=== PATIENT | male | born 1960 | race American Indian/Alaskan Native ===

== ENCOUNTER 2017-03-18 11:17 | Emergency (ER) | payer SELFPAY ==
[2017-03-18 11:44] VITALS: BP 149/94
[2017-03-18 12:01] LABS: Hematocrit 43.6 % (35.5-45.6); Hemoglobin 14.8 gm/dl (11.8-15.2); Mean Corpuscular HGB Conc 34 % (32-34); Mean Corpuscular Hemoglobin 30 pg (28-32); Mean Corpuscular Volume 89 fl (84-94); Platelet Count 267 K/mm3 (140-440); Red Blood Count 4.89 M/mm3 (3.65-5.03); White Blood Count 12.3 K/mm3 (4.5-11.0)
[2017-03-18 12:41] LABS: Alanine Aminotransferase 39 units/L (7-56); Alkaline Phosphatase 84 units/L (35-129); Anion Gap 18 mmol/L; BUN/Creatinine Ratio 18.88; Blood Urea Nitrogen 17 mg/dL (9-20); Calcium 9.9 mg/dL (8.4-10.2); Carbon Dioxide 25 mmol/L (22-30); Chloride 98.4 mmol/L (98-107); Glucose 94 mg/dL (75-100); Lipase 41 units/L (13-60); Potassium 3.8 mmol/L (3.6-5.0); Sodium 138 mmol/L (137-145); Total Protein 8.1 g/dL (6.3-8.2)
[2017-03-18 13:16] LABS: Anisocytosis 1+; Basophils % (Manual) 0 % (0.0-1.8); Blastocytes % (Manual) 0 %; Diff Status Complete; Platelet Estimate Consistent w Auto
[2017-03-18 14:36] LABS: Bilirubin,Urine NEG (Negative); Blood,Urine NEG (Negative); Ketones,Urine NEG (Negative); Leukocyte Esterase,Urine NEG (Negative); Nitrite,Urine NEG (Negative); Protein,Urine <15 mg/dL mg/dL (Negative); Urobilinogen,Urine < 2.0 mg/dL (<2.0); WBC,Urine < 1.0 /HPF (0.0-6.0)
[2017-03-18] MEDS ORDERED: DUONEB *Not for PRN Use IH ONE (15:45)
[2017-03-18] MEDS ORDERED: ZITHROMAX PO ONE (15:46)
[2017-03-18] MEDS ORDERED: PEPCID PO ONE (15:49)
--- NOTE | 2017-03-18 15:50 | Emergency Department Report ---
<VANESSAJASWANT MENDIETA Angelo - Last Filed: 03/18/17 16:41> ED Chest Pain HPI - General Chief Complaint: Chest Pain Stated Complaint: "feel funny" indicating epigastric Time Seen by Provider: 03/18/17 15:35 Source: patient Mode of arrival: Ambulatory Limitations: No Limitations - History of Present Illness -: Gradual Pain Location: other (dont feel good) Other Symptoms: cough, acid taste in mouth. denies: fever, syncope, rash, leg swelling, palpitations, burping Treatments Prior to Arrival: other (seen at another hosp on 03-14 for same; did not take meds bc he thinks they will make him worse. known anxiety) Aspirin use within the Past 7 Days: (0) No - Related Data On Oral Contraceptives: No Previous Rx's Medication Instructions Recorded Last Taken Type Docusate Sodium [Colace] 100 mg PO BID #60 capsule 09/24/15 Unknown Rx Famotidine [Pepcid] 20 mg PO BID #40 tablet 09/24/15 Unknown Rx Fluticasone [Flonase] 2 spray NS QDAY #1 bottle 09/24/15 Unknown Rx Hydralazine HCl [Apresoline TAB] 100 mg PO TID #30 tablet 09/24/15 Unknown Rx Prednisone [predniSONE 10 mg 10 mg PO .TAPER #1 tab.ds.pk 09/24/15 Unknown Rx (6-Day Pack, 21 Tabs)] amLODIPine [Norvasc] 10 mg PO DAILY #30 tablet 09/24/15 Unknown Rx traMADol [Ultram] 50 mg PO Q6HR PRN #20 tablet 09/24/15 Unknown Rx HYDROcodone/APAP 5-325 [[place] 1 each PO Q6HR PRN #16 tablet 10/04/15 Unknown Rx 5/325] Azithromycin [Zithromax TAB] 250 mg PO QDAY #4 tablet 03/18/17 Unknown Rx Allergies Allergy/AdvReac Type Severity Reaction Status Date / Time No Known Allergies Allergy Verified 06/30/15 23:10 Heart Score - HEART Score History: Slightly suspicious EKG: Normal Age: 45-65 Risk factors: 1-2 risk factors Troponin: < normal limit HEART Score: 2 ED Review of Systems ROS: Stated complaint: CHEST AND ABDOMEN PAIN Other details as noted in HPI Comment: Unobtainable due to pts medical conditions Constitutional: no symptoms reported, see HPI. denies: chills, fever Eyes: as per HPI. denies: eye pain ENT: as per HPI. denies: ear pain, throat pain Respiratory: no symptoms reported, see HPI, cough. denies: orthopnea, shortness of breath, SOB with exertion, SOB at rest, stridor Cardiovascular: as per HPI. denies: chest pain, palpitations, dyspnea on exertion, orthopnea, edema, syncope, paroxysmal nocturnal dyspnea Endocrine: no symptoms reported, see HPI. denies: excessive sweating, flushing , intolerance to cold, intolerance to heat Gastrointestinal: as per HPI. denies: abdominal pain, nausea, vomiting Genitourinary: as per HPI. denies: urgency, dysuria Musculoskeletal: as per HPI, other (ble pain a/c). denies: back pain Skin: as per HPI. denies: rash, lesions Neurological: as per HPI. denies: headache, weakness Psychiatric: as per HPI, anxiety (funny feeling; anxious; xanax) Hematological/Lymphatic: as per HPI. denies: easy bleeding ED Past Medical Hx - Past Medical History Hx Hypertension: Yes Hx GERD: Yes Hx Psychiatric Treatment: Yes (ANXIETY) Additional medical history: chronic back pain, RBBB, left rib fracture,AAA. home meds amlodipine, lisinopril, hctz, vit, motrin , prednisone, otc tagament - Surgical History Past Surgical History?: No Additional Surgical History: hernia repair - Family History Family history: no significant - Social History Smoking Status: Current Some Day Smoker Substance Use Type: None - Medications Home Medications: Home Medications Medication Instructions Recorded Confirmed Last Taken Type Docusate Sodium [Colace] 100 mg PO BID #60 capsule 09/24/15 Unknown Rx Famotidine [Pepcid] 20 mg PO BID #40 tablet 09/24/15 Unknown Rx Fluticasone [Flonase] 2 spray NS QDAY #1 bottle 09/24/15 Unknown Rx Hydralazine HCl [Apresoline TAB] 100 mg PO TID #30 tablet 09/24/15 Unknown Rx Prednisone [predniSONE 10 mg 10 mg PO .TAPER #1 tab.ds.pk 09/24/15 Unknown Rx (6-Day Pack, 21 Tabs)] amLODIPine [Norvasc] 10 mg PO DAILY #30 tablet 09/24/15 Unknown Rx traMADol [Ultram] 50 mg PO Q6HR PRN #20 tablet 09/24/15 Unknown Rx HYDROcodone/APAP 5-325 [[place] 1 each PO Q6HR PRN #16 tablet 10/04/15 Unknown Rx 5/325] Azithromycin [Zithromax TAB] 250 mg PO QDAY #4 tablet 03/18/17 Unknown Rx ED Physical Exam - General Limitations: No Limitations ED Course Vital Signs 03/18/17 03/18/17 03/18/17 11:40 16:51 16:57 Temperature 98 F Pulse Rate 87 Pulse Rate [ 85 88 Bilateral Upper Lobe] Respiratory 18 Rate Respiratory 18 20 Rate [Bilateral Upper Lobe] Blood Pressure 149/94 O2 Sat by Pulse 100 Oximetry - Reevaluation(s) Reevaluation #1: 03/18/17 1200 to er w vague co not feeling well no pain he went to another er 9-5 w urti [facility] lobe wheezing and rhochi no fever non toxic anxious AAA small per pt- suero 1 y ago; has had cardiac suero no cp no sob anxious about meds he was given labs noted ekg noted chest xray noted rt tx and medicated Dr. Quinteros aware of pt presentation Reevaluation #2: 03/18/17 15:49 vss nad dc home w dc poc RAMEZ score - Ramez Score Age > 65: (0) No Aspirin use within the Past 7 Days: (0) No 3 or more CAD Risk Factors: (0) No 2 or more Angina events in past 24 hrs: (0) No Known CAD with more than 50% Stenosis: (0) No Elevated Cardiac Markers: (0) No ST Deviation Greater than 0.5mm: (0) No RAMEZ Score: 0 ED Medical Decision Making - Lab Data Result diagrams: 03/18/17 11:49 03/18/17 11:49 - EKG Data -: EKG Interpreted by Me EKG shows normal: sinus rhythm - EKG Data When compared to previous EKG there are: other (rbbb old) Interpretation: no acute changes, other (known rbbb) - Radiology Data Radiology results: report reviewed, image reviewed - Medical Decision Making 12 lead rbbb- chronic trop neg recent urti wbc noted medicated dc to home w outpt poc - Differential Diagnosis ro acs/urti/anxiety Critical care attestation.: If time is entered above; I have spent that time in minutes in the direct care of this critically ill patient, excluding procedure time. ED Disposition Clinical Impression: URTI (acute upper respiratory infection), Bronchitis, Anxiety Disposition: - TO HOME OR SELFCARE Is pt being admited?: No Does the pt Need Aspirin: No Condition: Stable Instructions: Acute Bronchitis (ED), Anxiety (ED) Additional Instructions: rest fluids continue the prednisone as instructed med as ordered here today your labs were good today continue you bp meds continue a daily tagamet for your gerd follow up pcp Monday Prescriptions: Azithromycin [Zithromax TAB] 250 mg PO QDAY #4 tablet Referrals: PRIMARY CARE, [Primary Care Provider] - 3-5 Days JR REYES MD [Staff Physician] - 3-5 Days Time of Disposition: 16:47 <KAREN PICKERING - Last Filed: 03/18/17 18:08> ED Medical Decision Making - Lab Data Result diagrams: 03/18/17 11:49 03/18/17 11:49 - Medical Decision Making I have seen and examined this patient myself. I agree with the PA or plan as discussed. Patient is a 56-year-old male here with complaint of cough and diffuse pain. He otherwise feels well. His workup is essentially negative. He has no palpable mass in his abdomen. His labs and EKG are essentially normal. He does have a slightly elevated white blood cell count. He's had some URI symptoms and these persisted for some time. At this point I feel is warranted treating him with a course of oral antibiotics and discharge home. Discussed with patient. Dane Pickering
--- NOTE | 2017-03-18 16:21 | XRay Report ---
FINAL REPORT PROCEDURE: XR CHEST ROUTINE 2V TECHNIQUE: PA and lateral chest radiographs were obtained. CPT 31817 HISTORY: cp COMPARISON: No prior studies are available for comparison. FINDINGS: Heart: Normal. Mediastinum/Vessels: Normal. Lungs/Pleural space: COPD with slight eventration right hemidiaphragm. Bony thorax: Chronic rib irregularities likely chronic healed fractures of the left mid and lower chest area. Other: IMPRESSION: No acute cardiopulmonary process seen
[2017-03-18] MEDS ORDERED: ZITHROMAX ONE (17:56)
== END 2017-03-18 18:10 | disposition home or self-care (01) ==
LOC: ED 11:17
DX: J06.9 Acute upper respiratory infection, unspecified (principal); F41.9 Anxiety disorder, unspecified; F17.200 Nicotine dependence, unspecified, uncomplicated; G89.29 Other chronic pain; I10 Essential (primary) hypertension; K21.9 Gastro-esophageal reflux disease without esophagitis
CPT/HCPCS: 36415; 71020; 80053; 81001; 83690; 84484; 85007; 85025; 93005; 93010; 94640; 96374; 99284; J2930

== ENCOUNTER 2017-03-23 21:50 | Emergency (ER) | payer SELFPAY ==
[2017-03-23 22:40] LABS: Basophils % (Auto) 1.8 % (0.0-1.8); Eosinophils % (Auto) 4.2 % (0.0-4.3); Hemoglobin 14.1 gm/dl (11.8-15.2); Mean Corpuscular HGB Conc 34 % (32-34); Mean Corpuscular Hemoglobin 31 pg (28-32); Mean Corpuscular Volume 90 fl (84-94); Platelet Count 233 K/mm3 (140-440); Red Blood Count 4.58 M/mm3 (3.65-5.03); Red Cell Distribution Width 14.1 % (13.2-15.2); White Blood Count 10.8 K/mm3 (4.5-11.0)
[2017-03-23 22:48] LABS: INR 0.84 (0.87-1.13)
[2017-03-23 22:49] LABS: Partial Thromboplastin Time 30.6 Sec. (24.2-36.6)
[2017-03-23 22:58] LABS: Anion Gap 19 mmol/L; BUN/Creatinine Ratio 16.25; Blood Urea Nitrogen 13 mg/dL (9-20); Carbon Dioxide 21 mmol/L (22-30); Chloride 101.2 mmol/L (98-107); Glucose 118 mg/dL (75-100); Potassium 3.7 mmol/L (3.6-5.0); Sodium 137 mmol/L (137-145)
[2017-03-23] MEDS ORDERED: LIDOCAINE VISCOUS 2% PO ONE (23:16)
[2017-03-23] MEDS ORDERED: ALUM-MAG HYDROX-SIMETH 200-200-20MG/5ML PO ONE (23:16)
--- NOTE | 2017-03-23 23:26 | Emergency Department Report ---
ED Abdominal Pain HPI - General Chief Complaint: Chest Pain Stated Complaint: CHEST PAIN, LEG PAIN Time Seen by Provider: 03/23/17 22:54 Source: patient Mode of arrival: Ambulatory Limitations: No Limitations - History of Present Illness Initial Comments: 56 year old male with a past medical history GERD, hypertension, anxiety, chronic back pain, and small AAA presents to the Hospital complains of epigastric pain radiating to his chest. Pain has been going on on day. Described as a soreness that is worse with palpation. Seems to increase after eating. He feels like his abdomen is bloated and distended. Patient apparently was seen at another facility 95, seen here 99, and saw his PMD this morning for the same. His primary care doctor prescribed Gas-X pills. Patient comes here because symptoms are ongoing. No course of nausea, vomiting, melena , hematochezia, or fever. Patient also complains some bilateral leg pain 3 weeks. Patient states the pain is on the foot and extends to the knee. His legs feel tired and cramping, worse with ambulation, patient does smoke cigarettes. Complains of paresthesia sensation to his great toes only. MD Complaint: abdominal pain Severity scale (0 -10): 7 - Related Data Previous Rx's Medication Instructions Recorded Last Taken Type Docusate Sodium [Colace] 100 mg PO BID #60 capsule 09/24/15 Unknown Rx Famotidine [Pepcid] 20 mg PO BID #40 tablet 09/24/15 Unknown Rx Fluticasone [Flonase] 2 spray NS QDAY #1 bottle 09/24/15 Unknown Rx Hydralazine HCl [Apresoline TAB] 100 mg PO TID #30 tablet 09/24/15 Unknown Rx Prednisone [predniSONE 10 mg 10 mg PO .TAPER #1 tab.ds.pk 09/24/15 Unknown Rx (6-Day Pack, 21 Tabs)] amLODIPine [Norvasc] 10 mg PO DAILY #30 tablet 09/24/15 Unknown Rx traMADol [Ultram] 50 mg PO Q6HR PRN #20 tablet 09/24/15 Unknown Rx HYDROcodone/APAP 5-325 [[place] 1 each PO Q6HR PRN #16 tablet 10/04/15 Unknown Rx 5/325] Azithromycin [Zithromax TAB] 250 mg PO QDAY #4 tablet 03/18/17 Unknown Rx Aspirin [Aspirin TAB] 325 mg PO ONCE #30 tablet 03/24/17 Unknown Rx Mag Hydrox/Al Hydrox/Simeth 20 ml PO QID PRN #1 oral.susp 03/24/17 Unknown Rx [Maalox Advanced Suspension] Omeprazole Magnesium [PriLOSEC Otc] 20 mg PO QDAY #30 tablet. 03/24/17 Unknown Rx Allergies Allergy/AdvReac Type Severity Reaction Status Date / Time No Known Allergies Allergy Verified 06/30/15 23:10 ED Review of Systems ROS: Stated complaint: CHEST PAIN, LEG PAIN Other details as noted in HPI Comment: All other systems reviewed and negative Other: Constitutional: No fevers chills Eyes: No eye pain visual changes ENT: No ear pain or throat pain Neck: Denies pain Respiratory: Denies cough wheezing shortness of breath Cardiovascular: Denies chest pain, palpitations, syncope GI: Denies nausea, vomiting, diarrhea : Denies dysuria Musculoskeletal: As per HPI Skin: Denies rash, lesions, erythema Neurologic: Denies headache, numbness, weakness Psychiatric: Denies suicidal ideation, hallucinations ED Past Medical Hx - Past Medical History Previous Medical History?: Yes Hx Hypertension: Yes Hx GERD: Yes Hx Psychiatric Treatment: Yes (ANXIETY) Additional medical history: chronic back pain, RBBB, left rib fracture,AAA. home meds amlodipine, lisinopril, hctz, vit, motrin , prednisone, otc tagament - Surgical History Past Surgical History?: Yes Additional Surgical History: hernia repair - Social History Smoking Status: Current Every Day Smoker Substance Use Type: None - Medications Home Medications: Home Medications Medication Instructions Recorded Confirmed Last Taken Type Docusate Sodium [Colace] 100 mg PO BID #60 capsule 09/24/15 Unknown Rx Famotidine [Pepcid] 20 mg PO BID #40 tablet 09/24/15 Unknown Rx Fluticasone [Flonase] 2 spray NS QDAY #1 bottle 09/24/15 Unknown Rx Hydralazine HCl [Apresoline TAB] 100 mg PO TID #30 tablet 09/24/15 Unknown Rx Prednisone [predniSONE 10 mg 10 mg PO .TAPER #1 tab.ds.pk 09/24/15 Unknown Rx (6-Day Pack, 21 Tabs)] amLODIPine [Norvasc] 10 mg PO DAILY #30 tablet 09/24/15 Unknown Rx traMADol [Ultram] 50 mg PO Q6HR PRN #20 tablet 09/24/15 Unknown Rx HYDROcodone/APAP 5-325 [[place] 1 each PO Q6HR PRN #16 tablet 10/04/15 Unknown Rx 5/325] Azithromycin [Zithromax TAB] 250 mg PO QDAY #4 tablet 03/18/17 Unknown Rx Aspirin [Aspirin TAB] 325 mg PO ONCE #30 tablet 03/24/17 Unknown Rx Mag Hydrox/Al Hydrox/Simeth 20 ml PO QID PRN #1 oral.susp 03/24/17 Unknown Rx [Maalox Advanced Suspension] Omeprazole Magnesium [PriLOSEC Otc] 20 mg PO QDAY #30 tablet. 03/24/17 Unknown Rx ED Physical Exam - General Limitations: No Limitations - Other Other exam information: General: No limitations, patient is alert in no acute distress Head exam: Atraumatic, normocephalic Eyes exam: Normal appearance, pupils equal reactive to light, extraocular movements intact ENT: Moist mucous membrane, normal oropharynx Neck exam: Normal inspection, full range of motion, no meningismus nontender Respiratory exam: Clear to auscultation bilateral, no wheezes, rales, crackles Cardiovascular: Normal rate and rhythm, normal heart sounds Abdomen: Soft, nondistended, and nontender, with normal bowel sounds, no rebound, or guarding Extremity: Full range of motion normal inspection no deformity, 2+ DP pulses. Sensation grossly intact, no calf tenderness on palpation Back: Normal Inspection, full range of motion, no tenderness Neurologic: Alert, oriented x3, cranial nerves intact, no motor or sensory deficit Psychiatric: normal affect, normal mood Skin: Warm, dry, intact ED Course Vital Signs 03/23/17 03/23/17 03/23/17 22:07 22:43 22:46 Temperature 98.3 F Pulse Rate 87 74 78 Respiratory 20 25 H 25 H Rate Blood Pressure 131/87 132/81 127/78 Blood Pressure [Left] O2 Sat by Pulse 98 Oximetry 03/23/17 03/23/17 03/23/17 22:48 23:00 23:16 Temperature 98.1 F Pulse Rate 79 77 96 H Respiratory 20 12 15 Rate Blood Pressure 134/80 140/77 Blood Pressure 132/77 [Left] O2 Sat by Pulse 99 Oximetry 03/23/17 03/23/17 03/23/17 23:30 23:45 23:48 Temperature Pulse Rate 70 75 67 Respiratory 23 26 H 23 Rate Blood Pressure 135/55 142/77 130/75 Blood Pressure [Left] O2 Sat by Pulse Oximetry 03/24/17 03/24/17 03/24/17 00:00 00:15 00:30 Temperature Pulse Rate 76 69 69 Respiratory 19 19 19 Rate Blood Pressure 142/77 130/87 137/78 Blood Pressure [Left] O2 Sat by Pulse Oximetry 03/24/17 00:45 Temperature Pulse Rate 71 Respiratory 18 Rate Blood Pressure 136/81 Blood Pressure [Left] O2 Sat by Pulse Oximetry ED Medical Decision Making - Lab Data Result diagrams: 03/23/17 22:15 03/23/17 22:15 Lab Results 03/23/17 03/23/17 03/23/17 Range/Units 22:15 22:15 22:15 WBC 10.8 (4.5-11.0) K/mm3 RBC 4.58 (3.65-5.03) M/mm3 Hgb 14.1 (11.8-15.2) gm/dl Hct 41.0 (35.5-45.6) % MCV 90 (84-94) fl MCH 31 (28-32) pg MCHC 34 (32-34) % RDW 14.1 (13.2-15.2) % Plt Count 233 (140-440) K/mm3 Lymph % (Auto) 35.0 (13.4-35.0) % [place] % (Auto) 9.2 H (0.0-7.3) % Eos % (Auto) 4.2 (0.0-4.3) % Baso % (Auto) 1.8 (0.0-1.8) % Lymph # 3.8 (1.2-5.4) K/mm3 [place] # 1.0 H (0.0-0.8) K/mm3 Eos # 0.5 H (0.0-0.4) K/mm3 Baso # 0.2 H (0.0-0.1) K/mm3 Seg Neutrophils % 49.8 (40.0-70.0) % Seg Neutrophils # 5.4 (1.8-7.7) K/mm3 PT 11.9 L (12.2-14.9) Sec. INR 0.84 L (0.87-1.13) APTT 30.6 (24.2-36.6) Sec. Sodium 137 (137-145) mmol/L Potassium 3.7 (3.6-5.0) mmol/L Chloride 101.2 (98-107) mmol/L Carbon Dioxide 21 L (22-30) mmol/L Anion Gap 19 mmol/L BUN 13 (9-20) mg/dL Creatinine 0.8 (0.8-1.5) mg/dL Estimated GFR > 60 ml/min BUN/Creatinine Ratio 16.25 % Glucose 118 H (75-100) mg/dL Calcium 9.0 (8.4-10.2) mg/dL Troponin T < 0.010 (0.00-0.029) ng/mL 03/24/17 Range/Units 00:18 WBC (4.5-11.0) K/mm3 RBC (3.65-5.03) M/mm3 Hgb (11.8-15.2) gm/dl Hct (35.5-45.6) % MCV (84-94) fl MCH (28-32) pg MCHC (32-34) % RDW (13.2-15.2) % Plt Count (140-440) K/mm3 Lymph % (Auto) (13.4-35.0) % [place] % (Auto) (0.0-7.3) % Eos % (Auto) (0.0-4.3) % Baso % (Auto) (0.0-1.8) % Lymph # (1.2-5.4) K/mm3 [place] # (0.0-0.8) K/mm3 Eos # (0.0-0.4) K/mm3 Baso # (0.0-0.1) K/mm3 Seg Neutrophils % (40.0-70.0) % Seg Neutrophils # (1.8-7.7) K/mm3 PT (12.2-14.9) Sec. INR (0.87-1.13) APTT (24.2-36.6) Sec. Sodium (137-145) mmol/L Potassium (3.6-5.0) mmol/L Chloride (98-107) mmol/L Carbon Dioxide (22-30) mmol/L Anion Gap mmol/L BUN (9-20) mg/dL Creatinine (0.8-1.5) mg/dL Estimated GFR ml/min BUN/Creatinine Ratio % Glucose (75-100) mg/dL Calcium (8.4-10.2) mg/dL Troponin T < 0.010 (0.00-0.029) ng/mL Patient has elevated triglycerides and low HDL as well - Radiology Data Radiology results: report reviewed CT angiogram chest: Thoracic aorta normal caliber. Minimal other cirrhosis of the aorta. Mild COPD with slight fibrosis. Slight pleural thickening of the lower lungs. Minimal atelectasis left lung CT angiogram abdomen and pelvis: Patient has moderate arthrosclerosis most of his arteries in his abdomen without signs of stenosis or occlusion. Slight infrarenal abdominal aortic aneurysm measured 3 cm moderate peripheral atherosclerosis and some peripheral thrombus is identified in the abdominal aorta. 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 Significant arthrosclerosis and peripheral thrombus is identified in this region. - Medical Decision Making Patient has multiple complaints. I believe her symptoms are secondary to GERD. We'll encourage patient to take a PPI or H2 janet. Patient have ongoing leg symptoms was to be due to claudication secondary to PAD/tobacco use or chronic back issues. CT confirms the patient has a lot of arthrosclerosis to his abdominal arteries. Aspirin prescribed based on CT findings. Vascular and PMD follow-up will be encouraged. A copy of his CAT scan to take to his physicians for follow-up. patient had relief of symptoms after Maalox and viscous lidocaine in the ED. Lipitor be started for elevated triglycerides and low HDL - Differential Diagnosis GERD, gastritis, dyspepsia, cholelithiasis, dissection/AAA (less likely) Critical Care Time: No Critical care attestation.: If time is entered above; I have spent that time in minutes in the direct care of this critically ill patient, excluding procedure time. ED Disposition Clinical Impression: Indigestion, Claudication of both lower extremities, Atherosclerosis, Tobacco use, COPD (chronic obstructive pulmonary disease), Aneurysm of infrarenal abdominal aorta, Common iliac aneurysm, Hypertriglyceridemia, Low serum HDL Disposition: - TO HOME OR SELFCARE Is pt being admited?: No Does the pt Need Aspirin: No Condition: Stable Instructions: Peripheral Vascular Disorders (ED), Chronic Obstructive Pulmonary Disease (ED), Chronic Indigestion (ED), Hyperlipidemia (GEN), How to Stop Smoking (ED) Additional Instructions: Aspirin was started due atherosclerosis in arteries seen on CAT scan and leg cramping symptoms. Follow with the vascular doctor provided and your primary care doctor. Take the medication as prescribed and return if symptoms worsen. I recommend that she stop smoking because this will worsen and your COPD and arthrosclerosis in arteries. Prescriptions: Aspirin [Aspirin TAB] 325 mg PO ONCE #30 tablet Mag Hydrox/Al Hydrox/Simeth [Maalox Advanced Suspension] 20 ml PO QID PRN #1 oral.susp PRN Reason: Indigestion Omeprazole Magnesium [PriLOSEC Otc] 20 mg PO QDAY #30 tablet.dr Referrals: PRIMARY CARE, [Primary Care Provider] - 3-5 Days CATALINO SOTO MD [Staff Physician] - 3-5 Days Time of Disposition: 04:09
--- NOTE | 2017-03-24 01:59 | Cat Scan Report ---
FINAL REPORT PROCEDURE: CT ANGIO CHEST TECHNIQUE: Computerized tomographic angiography of the chest was performed after the IV injection of iodinated nonionic contrast including image processing. The image data was postprocessed using 2-dimensional multiplanar reformatted (MPR) and 3-dimensional (MIP and/or volume rendered) techniques. HISTORY: epigstric discomort rad to chest, aaa hx COMPARISON: No prior studies are available for comparison. FINDINGS: Heart and pericardium: Normal. Thoracic aorta: The thoracic aorta has a normal caliber. There is moderate atherosclerosis identified. Minimal peripheral thrombus identified in the lower thoracic aorta. No dissection. No aneurysm.. Pulmonary vasculature: The pulmonary arterial structures opacified without thromboemboli.. Lymph nodes: There are few small lymph nodes in the mediastinum, these measure up to 12 millimeters.. Lungs: Chronic obstructive pulmonary changes with mild fibrosis. Minimal atelectasis identified in the left lower lung. Slight scar formation in left lower lung. Mild pleural thickening bilateral lower lungs. The central airway is patent. Pleural space: Mild pleural thickening bilateral lower lungs. No effusion or pneumothorax.. Musculoskeletal structures: Mild degenerative changes of the thoracic spine.. Upper abdominal structures: No acute significant abnormality.. IMPRESSION: The thoracic aorta has a normal caliber without aneurysm or dissection. Minimal peripheral thrombus is identified in the lower thoracic aorta. Mild atherosclerosis of the aorta is identified. Mild COPD with slight fibrosis. Minimal atelectasis left lower lung. Mild scarring in the left lower lung. Slight pleural thickening bilateral lower lungs.
--- NOTE | 2017-03-24 02:06 | Cat Scan Report ---
FINAL REPORT PROCEDURE: CT ANGIO ABDOMEN PELVIS TECHNIQUE: Computerized axial tomographic angiography of the abdomen and pelvis was performed after the IV injection of iodinated nonionic contrast. The image data was postprocessed using 2-dimensional multiplanar reformatted (MPR) and 3-dimensional (MIP and/or volume rendered) techniques. HISTORY: epigstric discomort rad to chest, aaa hx COMPARISON: No prior studies are available for comparison. FINDINGS: Abdominal aorta: There is slight abdominal aortic aneurysm in the infrarenal abdominal aorta. This measures 3 centimeters in greatest diameter. Significant peripheral atherosclerosis of the aorta and all branching vessels is identified. There is mild peripheral thrombus identified in the abdominal aorta. Celiac artery: Moderate atherosclerosis. No stenosis or occlusion Superior mesenteric artery: Moderate atherosclerosis. No stenosis or occlusion Left renal artery: Moderate atherosclerosis. No stenosis or occlusion Right renal artery: Moderate atherosclerosis. No stenosis or occlusion Inferior mesenteric artery: Moderate atherosclerosis. No stenosis or occlusion Common iliacs: The right common iliac artery has moderate atherosclerosis. No stenosis or occlusion. The left common iliac artery has moderate aneurysmal dilatation with significant peripheral thrombus and atherosclerosis. The proximal left common iliac artery measures 3 centimeters. External iliacs: Moderate atherosclerosis. No stenosis or occlusion Internal iliacs: There is moderate atherosclerosis. These vessels are not as well visualized on this study. Hypervascular masses: Normal. Abdominal and pelvic viscera: There is a cyst off the anterior left renal cortex. No hydronephrosis. Other: None. IMPRESSION: There is a slight infrarenal abdominal aortic aneurysm measuring 3 centimeters. Moderate peripheral atherosclerosis in some peripheral thrombus is identified in the abdominal aorta. 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 This measures 3 centimeters. Significant atherosclerosis with peripheral thrombus is identified this region.
[2017-03-24 04:03] VITALS: BP 136/81
== END 2017-03-24 04:40 | disposition home or self-care (01) ==
LOC: ED 21:50
DX: I73.9 Peripheral vascular disease, unspecified (principal); K30 Functional dyspepsia; I70.90 Unspecified atherosclerosis; F10.10 Alcohol abuse, uncomplicated; I10 Essential (primary) hypertension; K21.9 Gastro-esophageal reflux disease without esophagitis; F17.210 Nicotine dependence, cigarettes, uncomplicated; J44.9 Chronic obstructive pulmonary disease, unspecified; I71.4 Abdominal aortic aneurysm, without rupture; I72.3 Aneurysm of iliac artery; E78.1 Pure hyperglyceridemia
CPT/HCPCS: 36415; 71275; 74174; 80048; 80061; 84484; 85025; 85610; 85730; 93005; 93010; 99284; Q9967

== ENCOUNTER 2017-03-30 22:39 | Emergency (ER) | payer SELFPAY | END 2017-03-30 22:55 | disposition left against medical advice (07) | LOC: ED 22:39 | DX: I10 Essential (primary) hypertension (principal); Z53.21 Procedure and treatment not carried out due to patient leaving prior to being seen by health care provider ==

== ENCOUNTER 2017-06-18 22:03 | Emergency (ER) | payer OTHER ==
[2017-06-18 23:24] VITALS: BP 142/88
[2017-06-18 23:50] LABS: Eosinophils % (Auto) 4.1 % (0.0-4.3); Hematocrit 45.9 % (35.5-45.6); Hemoglobin 15.9 gm/dl (11.8-15.2); Mean Corpuscular HGB Conc 35 % (32-34); Mean Corpuscular Hemoglobin 31 pg (28-32); Mean Corpuscular Volume 89 fl (84-94); Platelet Count 248 K/mm3 (140-440); Red Blood Count 5.14 M/mm3 (3.65-5.03); White Blood Count 8.4 K/mm3 (4.5-11.0)
[2017-06-19 00:10] LABS: Alanine Aminotransferase 17 units/L (7-56); Albumin 4.1 g/dL (3.9-5); Albumin/Globulin Ratio 1.3 %; Alkaline Phosphatase 89 units/L (35-129); Anion Gap 18 mmol/L; BUN/Creatinine Ratio 20; Blood Urea Nitrogen 20 mg/dL (9-20); Carbon Dioxide 26 mmol/L (22-30); Chloride 95.3 mmol/L (98-107); Glucose 101 mg/dL (75-100); Lipase 51 units/L (13-60); Potassium 4.4 mmol/L (3.6-5.0); Sodium 135 mmol/L (137-145); Total Protein 7.2 g/dL (6.3-8.2)
[2017-06-19 07:53] LABS: Bilirubin,Urine NEG (Negative); Blood,Urine NEG (Negative); Ketones,Urine NEG (Negative); Leukocyte Esterase,Urine NEG (Negative); Nitrite,Urine NEG (Negative); Protein,Urine <15 mg/dL mg/dL (Negative); Urobilinogen,Urine < 2.0 mg/dL (<2.0); WBC,Urine < 1.0 /HPF (0.0-6.0)
== END 2017-06-19 | disposition left against medical advice (07) ==
LOC: ED 22:03
DX: R51 Headache (principal); Z53.21 Procedure and treatment not carried out due to patient leaving prior to being seen by health care provider
CPT/HCPCS: 36415; 80053; 81001; 83690; 85025

== ENCOUNTER 2017-06-27 08:43 | Emergency (ER) | payer SELFPAY ==
[2017-06-27 09:04] VITALS: BP 131/85
[2017-06-27 09:36] LABS: Eosinophils % (Auto) 4.9 % (0.0-4.3); Hematocrit 44.5 % (35.5-45.6); Hemoglobin 15.1 gm/dl (11.8-15.2); Mean Corpuscular HGB Conc 34 % (32-34); Mean Corpuscular Hemoglobin 31 pg (28-32); Mean Corpuscular Volume 91 fl (84-94); Platelet Count 222 K/mm3 (140-440); Red Blood Count 4.91 M/mm3 (3.65-5.03); White Blood Count 7.4 K/mm3 (4.5-11.0)
[2017-06-27 09:52] LABS: Anion Gap 18 mmol/L; BUN/Creatinine Ratio 19; Blood Urea Nitrogen 17 mg/dL (9-20); Calcium 9.1 mg/dL (8.4-10.2); Carbon Dioxide 23 mmol/L (22-30); Glucose 165 mg/dL (75-100); Potassium 4.4 mmol/L (3.6-5.0); Sodium 138 mmol/L (137-145)
== END 2017-06-27 21:50 | disposition left against medical advice (07) ==
LOC: ED 08:43
DX: R51 Headache (principal); Z53.21 Procedure and treatment not carried out due to patient leaving prior to being seen by health care provider
CPT/HCPCS: 36415; 80048; 84484; 85025; 93005; 93010

== ENCOUNTER 2017-12-06 22:23 | Emergency (ER) | payer SELFPAY ==
[2017-12-06 22:48] VITALS: BP 142/85
[2017-12-06] MEDS ORDERED: ASPIRIN PO ONE (23:22)
[2017-12-07 00:51] LABS: Basophils # (Auto) 0.1 K/mm3 (0.0-0.1); Basophils % (Auto) 1.3 % (0.0-1.8); Eosinophils # (Auto) 0.5 K/mm3 (0.0-0.4); Eosinophils % (Auto) 4.7 % (0.0-4.3); Hematocrit 46.3 % (35.5-45.6); Hemoglobin 15.6 gm/dl (11.8-15.2); Lymphocytes # (Auto) 4.3 K/mm3 (1.2-5.4); Lymphocytes % (Auto) 44.4 % (13.4-35.0); Mean Corpuscular HGB Conc 34 % (32-34); Mean Corpuscular Hemoglobin 31 pg (28-32); Mean Corpuscular Volume 92 fl (84-94); Monocytes # (Auto) 0.8 K/mm3 (0.0-0.8); Monocytes % (Auto) 7.9 % (0.0-7.3); Platelet Count 237 K/mm3 (140-440); Red Blood Count 5.03 M/mm3 (3.65-5.03); Red Cell Distribution Width 14.5 % (13.2-15.2)
[2017-12-07 01:04] LABS: BUN/Creatinine Ratio 13; Blood Urea Nitrogen 13 mg/dL (9-20); Calcium 9.7 mg/dL (8.4-10.2); Hemolysis Index 4
== END 2017-12-06 23:50 | disposition left against medical advice (07) ==
LOC: ED 22:23
DX: R07.9 Chest pain, unspecified (principal); R42 Dizziness and giddiness; F17.200 Nicotine dependence, unspecified, uncomplicated; Z53.21 Procedure and treatment not carried out due to patient leaving prior to being seen by health care provider
CPT/HCPCS: 36415; 80048; 84484; 85025; 93005; 93010

== ENCOUNTER 2019-06-13 22:37 | Emergency (ER) | payer SELFPAY | END 2019-06-13 22:45 | disposition left against medical advice (07) | LOC: ED 22:37 | DX: I10 Essential (primary) hypertension (principal); Z53.21 Procedure and treatment not carried out due to patient leaving prior to being seen by health care provider ==

== ENCOUNTER 2020-05-01 20:54 | Emergency (ER) | payer SELFPAY ==
[2020-05-01 21:13] VITALS: BP 152/80
== END 2020-05-02 00:45 | disposition left against medical advice (07) ==
LOC: ED 20:54
DX: I10 Essential (primary) hypertension (principal); Z53.21 Procedure and treatment not carried out due to patient leaving prior to being seen by health care provider

== ENCOUNTER 2020-05-11 19:53 | Emergency (ER) | payer SELFPAY ==
--- NOTE | 2020-05-11 21:28 | Emergency Department Report ---
Blank Doc - Documentation Documentation: 29-year-old male that presents with dizziness wiht headaches and uncontrolled HTN. This initial assessment/diagnostic orders/clinical plan/treatment(s) is/are subject to change based on patient's health status, clinical progression and re- assessment by fellow clinical providers in the ED. Further treatment and workup at subsequent clinical providers discretion. Patient/guardians urged not to elope from the ED as their condition may be serious if not clinically assessed a nd managed. Initial orders include: 1- Patient sent to MAIN ED for further evaluation and treatment 2- labs 3- CT head 4- EKG
[2020-05-11 21:56] LABS: Basophils % (Auto) 0.5 % (0.0-1.8); Eosinophils # (Auto) 0.3 K/mm3 (0.0-0.4); Eosinophils % (Auto) 4.2 % (0.0-4.3); Hematocrit 42.5 % (35.5-45.6); Hemoglobin 14.7 gm/dl (11.8-15.2); Lymphocytes # (Auto) 3.6 K/mm3 (1.2-5.4); Lymphocytes % (Auto) 50.6 % (13.4-35.0); Mean Corpuscular HGB Conc 35 % (32-34); Mean Corpuscular Volume 93 fl (84-94); Monocytes # (Auto) 0.7 K/mm3 (0.0-0.8); Monocytes % (Auto) 9.5 % (0.0-7.3); Platelet Count 182 K/mm3 (140-440); Red Blood Count 4.56 M/mm3 (3.65-5.03); Red Cell Distribution Width 14.5 % (13.2-15.2)
[2020-05-11 22:09] LABS: INR 0.97 (0.87-1.13)
[2020-05-11 22:10] LABS: Partial Thromboplastin Time 33.2 Sec. (24.2-36.6)
[2020-05-11 22:17] VITALS: BP 143/77
--- NOTE | 2020-05-11 22:31 | Cat Scan Report ---
CT HEAD WITHOUT CONTRAST INDICATION / CLINICAL INFORMATION: Patient complains of dizziness and headache. TECHNIQUE: All CT scans at this location are performed using CT dose reduction for ALARA by means of automated e xposure control. COMPARISON: Prior CT head dated 09/24/2015 FINDINGS: HEMORRHAGE: None. EXTRA-AXIAL SPACES: Normal in size and morphology for the patient's age. VENTRICULAR SYSTEM: Normal in size and morphology for the patient's age. CEREBRAL PARENCHYMA: Dural calcifications are noted. Right basal ganglia calcifications are noted. No acute territorial infarct. Old lacunar infarct left basal ganglia unchanged prior exam. MIDLINE SHIFT OR HERNIATION: None. CEREBELLUM / BRAINSTEM: No significant abnormality. ORBITS: Normal as visualized. SOFT TISSUES of HEAD: No significant abnormality. CALVARIUM: No significant abnormality. PARANASAL SINUSES / MASTOID AIR CELLS: Mild mucosal thickening right maxillary sinus. ADDITIONAL FINDINGS: None. IMPRESSION: 1. No acute intracranial abnormality. Signer Name: Darrick Roberts MD Signed: 05/11/2020 10:26 PM Workstation Name: [id number]
[2020-05-11 22:32] LABS: Alanine Aminotransferase 38 units/L (7-56); Albumin 3.5 g/dL (3.9-5); BUN/Creatinine Ratio 11; Blood Urea Nitrogen 9 mg/dL (9-20); Calcium 9.5 mg/dL (8.4-10.2); Hemolysis Index 6
--- NOTE | 2020-05-11 22:43 | XRay Report ---
CHEST 2 VIEWS INDICATION / CLINICAL INFORMATION: Chest Pain. COMPARISON: 03/18/2017 FINDINGS: SUPPORT DEVICES: None. HEART / MEDIASTINUM: Stable. LUNGS / PLEURA: No significant pulmonary or pleural abnormality. No pneumothorax. ADDITIONAL FINDINGS: No significant additional findings. IMPRESSION: 1. No acute findings. No significant interval change Signer Name: Darrick Roberts MD Signed: 05/11/2020 10:38 PM Workstation Name: [id number]
--- NOTE | 2020-05-11 23:03 | Emergency Department Report ---
HPI - General Chief Complaint: High BP Time Seen by Provider: 05/11/20 21:27 - HPI HPI: This is a 59-year-old male who presents to the emergency department from home with complaint of a headache and some dizziness, with elevated blood pressure. The patient has a history of hypertension for which he is on doxazosin, metoprolol and amlodipine. He went to follow-up with his PCP today, Dr. Us, who increased his dose of the doxazosin. The patient went home and took a nap and says that he woke up with a headache that he describes as "you know how your head feels when your blood pressure is high" and some nonspecific dizziness/lightheadedness. At the time of my examination the patient is improved and says he feels back at his baseline status. He is a tobacco smoker. He does admit to drinking copious amounts of coffee each day. He has a past medical history of GERD, hypertension, anxiety, AAA, peripheral arterial disease. He denies any chest pain, fever, shortness of breath, back pain, abdominal pain, nausea, vomiting or diaphoresis. ED Past Medical Hx - Past Medical History Previous Medical History?: Yes Hx Hypertension: Yes Hx GERD: Yes Hx Psychiatric Treatment: Yes (ANXIETY) Additional medical history: chronic back pain, RBBB, left rib fracture,AAA. PAD - Surgical History Past Surgical History?: Yes Additional Surgical History: hernia repair, Stents in legs - Social History Smoking Status: Never Smoker Substance Use Type: None - Medications Home Medications: Home Medications Medication Instructions Recorded Confirmed Last Taken Type amLODIPine 10 mg PO DAILY #30 tablet 09/24/15 05/11/20 Unknown Rx AtorvaSTATin [Lipitor] 10 mg PO QHS #30 tab 03/24/17 05/11/20 Unknown Rx ALPRAZolam [Xanax TAB] 0.5 mg PO DAILY 05/11/20 05/11/20 Unknown History Apixaban [Eliquis] 5 mg PO DAILY 05/11/20 05/11/20 Unknown History Metoprolol SUCCINATE ER TAB 200 mg PO DAILY 05/11/20 05/11/20 Unknown History cilostazoL [Pletal] 100 mg PO BID 05/11/20 05/11/20 Unknown History ED Review of Systems ROS: Stated complaint: ELEVATED BLOOD PRESSURE Other details as noted in HPI Comment: All other systems reviewed and negative Constitutional: denies: chills, fever Eyes: denies: eye pain, vision change ENT: denies: ear pain, throat pain Respiratory: denies: cough, shortness of breath Cardiovascular: denies: chest pain, palpitations Gastrointestinal: denies: abdominal pain, vomiting Genitourinary: denies: dysuria, discharge Musculoskeletal: denies: back pain, arthralgia Skin: denies: rash, lesions Neurological: headache, other (Dizziness/lightheadedness). denies: weakness Physical Exam - Physical Exam Vital Signs: Vital Signs 05/11/20 05/11/20 05/11/20 21:02 21:28 22:16 Temperature 97.7 F Pulse Rate 63 60 Respiratory 20 18 Rate Blood Pressure 152/78 156/91 143/77 [Left] O2 Sat by Pulse 98 Oximetry Physical Exam: GENERAL: The patient is well-developed well-nourished. HENT: Normocephalic. Atraumatic. Patient has moist mucous membranes. EYES: Extraocular motions are intact. No nystagmus. NECK: Supple. Trachea is midline. CHEST/LUNGS: Clear to auscultation. There is no respiratory distress noted. HEART/CARDIOVASCULAR: Regular. There is no tachycardia. There is no murmur. ABDOMEN: Abdomen is soft, nontender. Patient has normal bowel sounds. SKIN: Skin is warm and dry. NEURO: The patient is awake, alert, and oriented. The patient is cooperative. The patient has no focal neurologic deficits. Normal speech. Cranial nerves II through XII grossly intact. MUSCULOSKELETAL: There is no tenderness or deformity. There is no limitation range of motion. ED Course Vital Signs 05/11/20 05/11/20 05/11/20 21:02 21:28 22:16 Temperature 97.7 F Pulse Rate 63 60 Respiratory 20 18 Rate Blood Pressure 152/78 156/91 143/77 [Left] O2 Sat by Pulse 98 Oximetry - Reevaluation(s) Reevaluation #1: 05/12/20 01:13 Lab Results 05/11/20 05/11/20 05/11/20 Range/Units 21:45 21:45 21:45 WBC 7.1 (4.5-11.0) K/mm3 RBC 4.56 (3.65-5.03) M/mm3 Hgb 14.7 (11.8-15.2) gm/dl Hct 42.5 (35.5-45.6) % MCV 93 (84-94) fl MCH 32 (28-32) pg MCHC 35 H (32-34) % RDW 14.5 (13.2-15.2) % Plt Count 182 (140-440) K/mm3 Lymph % (Auto) 50.6 H (13.4-35.0) % [place] % (Auto) 9.5 H (0.0-7.3) % Eos % (Auto) 4.2 (0.0-4.3) % Baso % (Auto) 0.5 (0.0-1.8) % Lymph # (Auto) 3.6 (1.2-5.4) K/mm3 [place] # (Auto) 0.7 (0.0-0.8) K/mm3 Eos # (Auto) 0.3 (0.0-0.4) K/mm3 Baso # (Auto) 0.0 (0.0-0.1) K/mm3 Seg Neutrophils % 35.2 L (40.0-70.0) % Seg Neutrophils # 2.5 (1.8-7.7) K/mm3 PT 13.1 (12.2-14.9) Sec. INR 0.97 (0.87-1.13) APTT 33.2 (24.2-36.6) Sec. Sodium 142 (137-145) mmol/L Potassium 4.1 (3.6-5.0) mmol/L Chloride 107.4 H (98-107) mmol/L Carbon Dioxide 19 L (22-30) mmol/L Anion Gap 20 mmol/L BUN 9 (9-20) mg/dL Creatinine 0.8 (0.8-1.3) mg/dL Estimated GFR > 60 ml/min BUN/Creatinine Ratio 11 % Glucose 103 H (75-100) mg/dL Calcium 9.5 (8.4-10.2) mg/dL Total Bilirubin 0.40 (0.1-1.2) mg/dL AST 27 (5-40) units/L ALT 38 (7-56) units/L Alkaline Phosphatase 86 (35-129) units/L Troponin T < 0.010 (0.00-0.029) ng/mL Total Protein 7.0 (6.3-8.2) g/dL Albumin 3.5 L (3.9-5) g/dL Albumin/Globulin Ratio 1.0 % Reevaluation #2: 05/12/20 01:13 Vital Signs 05/11/20 05/11/20 05/11/20 21:02 21:28 22:16 Temperature 97.7 F Pulse Rate 63 60 Respiratory 20 18 Rate Blood Pressure 152/78 156/91 143/77 [Left] O2 Sat by Pulse 98 Oximetry ED Medical Decision Making - Lab Data Result diagrams: 05/11/20 21:45 05/11/20 21:45 - EKG Data -: EKG Interpreted by Me EKG shows normal: sinus rhythm, axis, intervals, QRS complexes (Right bundle branch block), ST-T waves Rate: bradycardia (58 bpm) - EKG Data When compared to previous EKG there are: no significant change Interpretation: unchanged when compared t (12/06/17) - Radiology Data Radiology results: report reviewed, image reviewed interpreted by me: Chest x-ray does not show any acute process. There are no pleural effusions, obvious pneumonia and there is no pneumothorax. No significant cardiomegaly. CT HEAD WITHOUT CONTRAST INDICATION / CLINICAL INFORMATION: Patient complains of dizziness and headache. TECHNIQUE: All CT scans at this location are performed using CT dose reduction for ALARA by means of automated exposure control. COMPARISON: Prior CT head dated 09/24/2015 FINDINGS: HEMORRHAGE: None. EXTRA- AXIAL SPACES: Normal in size and morphology for the patient's age. VENTRICULAR SYSTEM: Normal in size and morphology for the patient's age. CEREBRAL PARENCHYMA: Dural calcifications are noted. Right basal ganglia calcifications are noted. No acute territorial infarct. Old lacunar infarct left basal ganglia unchanged prior exam. MIDLINE SHIFT OR HERNIATION: None. CEREBELLUM / BRAINSTEM: No significant abnormality. ORBITS: Normal as visualized. SOFT TISSUES of HEAD: No significant abnormality. CALVARIUM: No significant abnormality. PARANASAL SINUSES / MASTOID AIR CELLS: Mild mucosal thickening right maxillary sinus. ADDITIONAL FINDINGS: None. IMPRESSION: 1. No acute intracranial abnormality. - Medical Decision Making This patient presents to the emergency department with complaint of elevated blood pressure and a nonspecific headache and dizziness. At the time of my examination the symptoms have resolved. He does not have any focal, motor or sensory deficits and his cranial nerves are intact. The patient had a CT scan of the head without contrast, ordered through triage, that came back showing no acute process including any large territorial infarct or hemorrhage. Patient's labs have been unremarkable including CBC, metabolic panel, negative troponin. EKG was done that does not show any morphology consistent with ST elevation myocardial infarction or any significant dysrhythmia. The patient did present with some elevated blood pressure but it came down to a much more reasonable level without any antihypertensive medication given. For all these reasons the patient appears safe for discharge home at this time. He has good outpatient follow-up with primary care. We discussed dietary and/or lifestyle changes to make including smoking cessation, decrease salt and caffeine intake. He will re turn to the emergency department with any worsening of his symptoms or with any acute distress. Critical Care Time: No Critical care attestation.: If time is entered above; I have spent that time in minutes in the direct care of this critically ill patient, excluding procedure time. ED Disposition Clinical Impression: Dizziness Hypertension Qualifiers: Hypertension type: essential hypertension Qualified Code(s): I10 - Essential (primary) hypertension Disposition: DC-01 TO HOME OR SELFCARE Is pt being admited?: No Condition: Stable Instructions: Hypertension (ED), Lightheadedness (ED), Dizziness (ED) Additional Instructions: Please follow-up with your primary care physician. Take your blood pressure medications as prescribed. Please quit smoking. Try and stay away from foods that are high in salt and caffeinated products. Keep a blood pressure log. Return to the emergency department with any worsening of your symptoms, new or concerning symptoms not addressed during this current emergency department visit, or with any acute distress. Referrals: CHAVA US MD [Referring] - 2-3 Days Time of Disposition: 23:20
== END 2020-05-12 | disposition home or self-care (01) ==
LOC: ED 19:53
DX: I10 Essential (primary) hypertension (principal); R42 Dizziness and giddiness; K21.9 Gastro-esophageal reflux disease without esophagitis; F41.9 Anxiety disorder, unspecified; Z98.890 Other specified postprocedural states; Z79.899 Other long term (current) drug therapy
CPT/HCPCS: 36415; 70450; 71046; 80053; 84484; 85025; 85610; 85730; 93005

== ENCOUNTER 2020-05-26 08:33 | Emergency (ER) | payer OTHER ==
[2020-05-26 09:09] VITALS: BP 131/69
--- NOTE | 2020-05-26 09:47 | Emergency Department Report ---
ED Abdominal Pain HPI - General Chief Complaint: Extremity Problem,Nontraumatic Stated Complaint: LIGHT HEADED Time Seen by Provider: 05/26/20 09:38 Source: patient Mode of arrival: Ambulatory Limitations: No Limitations - History of Present Illness Initial Comments: This very pleasant 59-year-old male who presents the emergency department chief complaint of left lower quadrant abdominal pain and left lower back pain. Patient reports the pain is aggravated with certain movements but no pain with palpation. He has a past medical history of GERD, hypertension, chronic back pain, anxiety, rib fractures, abdominal aortic aneurysm, peripheral vascular disease with stents in the left leg and dilated arteries in the right leg. He reports he has been compliant with his medications. He denies any associated fever, chills, night sweats, headache, dizziness, blurry vision, nausea, vomiting, diarrhea, chest pain, shortness of breath or any other associated symptoms. Per the triage note the patient had apparently reported bilateral lower extremity pain however when asked the patient about this he states this is no different than his usual pain. Stating "my legs always hurt." He states this is not similar to prior to having his vascular's procedures done. - Related Data Home Medications Medication Instructions Recorded Confirmed Last Taken ALPRAZolam [Xanax TAB] 0.5 mg PO DAILY 05/11/20 05/11/20 Unknown Apixaban [Eliquis] 5 mg PO DAILY 05/11/20 05/11/20 Unknown Metoprolol SUCCINATE ER TAB 200 mg PO DAILY 05/11/20 05/11/20 Unknown cilostazoL [Pletal] 100 mg PO BID 05/11/20 05/11/20 Unknown Previous Rx's Medication Instructions Recorded Last Taken Type amLODIPine 10 mg PO DAILY #30 tablet 09/24/15 Unknown Rx AtorvaSTATin [Lipitor] 10 mg PO QHS #30 tab 03/24/17 Unknown Rx traMADoL [Ultram 50 MG tab] 50 mg PO Q6HR PRN #12 tablet 05/26/20 Unknown Rx Allergies Allergy/AdvReac Type Severity Reaction Status Date / Time No Known Allergies Allergy Verified 06/30/15 23:10 ED Review of Systems ROS: Stated complaint: LIGHT HEADED Other details as noted in HPI Comment: All other systems reviewed and negative Constitutional: denies: chills, fever Eyes: denies: eye pain, eye discharge, vision change ENT: denies: ear pain, throat pain Respiratory: denies: cough, shortness of breath, wheezing Cardiovascular: denies: chest pain, palpitations Endocrine: no symptoms reported Gastrointestinal: as per HPI, abdominal pain. denies: nausea, diarrhea Genitourinary: denies: urgency, dysuria Musculoskeletal: as per HPI, back pain. denies: joint swelling, arthralgia Skin: denies: rash, lesions Neurological: denies: headache, weakness, paresthesias Psychiatric: denies: anxiety, depression Hematological/Lymphatic: denies: easy bleeding, easy bruising ED Past Medical Hx - Past Medical History Previous Medical History?: Yes Hx Hypertension: Yes Hx GERD: Yes Hx Psychiatric Treatment: Yes (ANXIETY) Additional medical history: chronic back pain, RBBB, left rib fracture,AAA. PAD - Surgical History Past Surgical History?: Yes Additional Surgical History: hernia repair, Stents in legs - Social History Smoking Status: Never Smoker Substance Use Type: None - Medications Home Medications: Home Medications Medication Instructions Recorded Confirmed Last Taken Type amLODIPine 10 mg PO DAILY #30 tablet 09/24/15 05/11/20 Unknown Rx AtorvaSTATin [Lipitor] 10 mg PO QHS #30 tab 03/24/17 05/11/20 Unknown Rx ALPRAZolam [Xanax TAB] 0.5 mg PO DAILY 05/11/20 05/11/20 Unknown History Apixaban [Eliquis] 5 mg PO DAILY 05/11/20 05/11/20 Unknown History Metoprolol SUCCINATE ER TAB 200 mg PO DAILY 05/11/20 05/11/20 Unknown History cilostazoL [Pletal] 100 mg PO BID 05/11/20 05/11/20 Unknown History traMADoL [Ultram 50 MG tab] 50 mg PO Q6HR PRN #12 tablet 05/26/20 Unknown Rx ED Physical Exam - General Limitations: No Limitations General appearance: alert, in no apparent distress - Head Head exam: Present: atraumatic, normocephalic - Eye Eye exam: Present: normal appearance, PERRL, EOMI Pupils: Present: normal accommodation - ENT ENT exam: Present: normal exam, normal orophraynx, mucous membranes moist - Neck Neck exam: Present: normal inspection, full ROM. Absent: tenderness, meningismus - Respiratory Respiratory exam: Present: normal lung sounds bilaterally. Absent: respiratory distress, wheezes, rales, rhonchi, stridor - Cardiovascular Cardiovascular Exam: Present: regular rate, normal rhythm, normal heart sounds. Absent: systolic murmur, diastolic murmur, rubs, gallop - GI/Abdominal GI/Abdominal exam: Present: soft, normal bowel sounds. Absent: distended, tenderness, rebound, rigid - Rectal Rectal exam: Present: deferred - Extremities Exam Extremities exam: Present: normal inspection, full ROM, other (Normal bilateral DP and PT pulses. Normal brisk capillary refill in the toes. No ulcers). Absent: tenderness (No posterior calf tenderness, negative Homans' sign bilaterally), normal capillary refill, calf tenderness - Back Exam Back exam: Present: normal inspection, full ROM. Absent: tenderness, CVA tenderness (R), CVA tenderness (L) - Neurological Exam Neurological exam: Present: alert, oriented X3, CN II-XII intact, normal gait - Psychiatric Psychiatric exam: Present: normal affect, normal mood - Skin Skin exam: Present: warm, dry, intact, normal color. Absent: rash ED Course Vital Signs 05/26/20 09:08 Temperature 98.0 F Pulse Rate 58 L Respiratory 16 Rate Blood Pressure 131/69 [Right] O2 Sat by Pulse 98 Oximetry - Reevaluation(s) Reevaluation #1: 05/26/20 09:46 Patient is very well-appearing and in no distress. His vascular exam of the leg is unremarkable with normal pedal pulses. Patient denies any pain in the legs and do not see any signs of an ischemic leg or symptoms of symptomatic hawk pheral vascular disease. Patient has been compliant with his antiplatelet medication. The patient's pain in the left lower quadrant of the abdomen we will get a CAT scan, labs to evaluate his aorta and rule out other possible causes such as diverticulitis, kidney stone, complicated hernia or any other possible causes of his symptoms.. ED Medical Decision Making - Lab Data Result diagrams: 05/26/20 10:12 05/26/20 10:12 Lab Results 05/26/20 05/26/20 05/26/20 Range/Units 09:53 10:12 10:12 WBC 5.5 (4.5-11.0) K/mm3 RBC 4.65 (3.65-5.03) M/mm3 Hgb 14.6 (11.8-15.2) gm/dl Hct 42.7 (35.5-45.6) % MCV 92 (84-94) fl MCH 31 (28-32) pg MCHC 34 (32-34) % RDW 14.4 (13.2-15.2) % Plt Count 195 (140-440) K/mm3 Seg Neutrophils % Product Support Specialist Sodium 139 (137-145) mmol/L Potassium 4.5 (3.6-5.0) mmol/L Chloride 107.6 H (98-107) mmol/L Carbon Dioxide 24 (22-30) mmol/L Anion Gap 12 mmol/L BUN 12 (9-20) mg/dL Creatinine 0.8 (0.8-1.3) mg/dL Estimated GFR > 60 ml/min BUN/Creatinine Ratio 15 % Glucose 95 (75-100) mg/dL Calcium 9.4 (8.4-10.2) mg/dL Total Bilirubin 0.70 (0.1-1.2) mg/dL AST 21 (5-40) units/L ALT 22 (7-56) units/L Alkaline Phosphatase 82 (35-129) units/L Total Protein 7.2 (6.3-8.2) g/dL Albumin 4.0 (3.9-5) g/dL Albumin/Globulin Ratio 1.3 % Lipase 34 (13-60) units/L Urine Color Yellow (Yellow) Urine Turbidity Clear (Clear) Urine pH 5.0 (5.0-7.0) Ur Specific [place] 1.011 (1.003-1.030) Urine Protein <15 mg/dl (Negative) mg/dL Urine Glucose (UA) Neg (Negative) mg/dL Urine Ketones Neg (Negative) mg/dL Urine Blood Neg (Negative) Urine Nitrite Neg (Negative) Urine Bilirubin Neg (Negative) Urine Urobilinogen < 2.0 (<2.0) mg/dL Ur Leukocyte Esterase Neg (Negative) Urine WBC (Auto) < 1.0 (0.0-6.0) /HPF Urine RBC (Auto) 1.0 (0.0-6.0) /HPF Urine Mucus Few /HPF - Radiology Data Radiology results: report reviewed, image reviewed Cat Scan Report Signed Patient: VALENTINA MARIO MR#: [id number] : 1960 Acct:[id number] Age/Sex: 59 / M ADM Date: 05/26/20 Loc: ED Attending Dr: Ordering Physician: ALEXANDREA OAKES Date of Service: 05/26/20 Procedure(s): CT abdomen pelvis w con Accession Number(s): [id number] cc: ALEXANDREA OAKES CT ABDOMEN AND PELVIS WITH CONTRAST INDICATION / CLINICAL INFORMATION: LLQ abdominal pain, hx of AAA. TECHNIQUE: Axial CT images were obtained through the abdomen and pelvis after 100 mL of IV contrast. All CT scans at this location are performed using CT dose reduction for ALARA by means of automated exposure control. COMPARISON: CTA dated 03/24/2017. FINDINGS: LOWER CHEST: Remote fracture deformity of the left posterior ribs noted. There is similar appearing rounded atelectasis involving the left lower lobe. Lung bases are otherwise unremarkable. LIVER: Unremarkable GALLBLADDER/BILIARY TREE: Unremarkable PANCREAS: Unremarkable SPLEEN: Unremarkable ADRENALS: Unremarkable KIDNEYS / URETER: Left renal cysts and additional too small to characterize renal hypodensities. Kidneys enhance symmetrically. No hydronephrosis. URINARY BLADDER: Unremarkable REPRODUCTIVE ORGANS: Prostate is enlarged. STOMACH / SMALL BOWEL: Stomach and small bowel are normal in caliber. No evidence of bowel inflammation. COLON: Colon is unremarkable. The appendix is normal in caliber. LYMPH NODES: No significant adenopathy. VASCULATURE: Moderate calcified and noncalcified plaque of the abdominal aorta and major branching vessels. Infrarenal abdominal aortic aneurysm measures 3.4 cm (series 2 image 111); slightly enlarged from prior study. Left iliac stent is patent. The excluded left common iliac artery aneurysm is stable, measuring up to 3.3 cm (series 2 image 143). OTHER: No free air, free fluid, or focal fluid collection is identified. SKELETAL SYSTEM: Multilevel degenerative changes of the thoracolumbar spine. Severe disc and endplate changes redemonstrated at L4-L5. There is no acute process identified. IMPRESSION: 1. No acute process of the abdomen or pelvis. 2. Slight interval enlargement in infrarenal abdominal aortic aneurysm, measuring 3.4 cm. 3. Patent left iliac stent with stable size of excluded left common iliac artery aneurysm. 4. Other stable chronic and incidental findings as above. Signer Name: Mary Crook MD Signed: 05/26/2020 1:06 PM Workstation Name: [id number] Transcribed By: USHA Dictated By: MARY ZAZUETA MD Electronically Authenticated By: MARY ZAZUETA MD Signed Date/Time: 05/26/20 1306 - Medical Decision Making Patient nontoxic no acute distress. Vital signs are stable. His CT scan redemonstrated his abdominal aortic aneurysm with slight increase in size. The patient's vital signs are stable. He is hemodynamically stable. The labs were unremarkable. The patient's exam was unremarkable. He had normal bilateral femoral, popliteal, DP PT pulses bilaterally. He has an appoint with his vascular surgeon in 2 weeks. I recommended he follow-up sooner due to his symptoms. He is instructed to return the emerge part if he develops any change or worsening symptoms. He verbalized understanding the diagnosis, treatment plan and follow-up instructions and all of his questions were answered. - Differential Diagnosis Abdominal aortic aneurysm, diverticulitis, hernia Critical care attestation.: If time is entered above; I have spent that time in minutes in the direct care of this critically ill patient, excluding procedure time. ED Disposition Clinical Impression: Left lower quadrant abdominal pain Disposition: DC-01 TO HOME OR SELFCARE Is pt being admited?: No Condition: Stable Prescriptions: traMADoL [Ultram 50 MG tab] 50 mg PO Q6HR PRN #12 tablet PRN Reason: Pain Referrals: PRIMARY CARE, [Primary Care Provider] - 3-5 Days Time of Disposition: 13:25
[2020-05-26 10:04] LABS: Bilirubin,Urine NEG (Negative); Blood,Urine NEG (Negative); Color,Urine Yellow (Yellow); Mucus,Urine FEW /HPF; Protein,Urine <15 mg/dL mg/dL (Negative); Urobilinogen,Urine < 2.0 mg/dL (<2.0)
[2020-05-26 10:10] LABS: WBC,Urine < 1.0 /HPF (0.0-6.0)
[2020-05-26 10:42] LABS: Hematocrit 42.7 % (35.5-45.6); Hemoglobin 14.6 gm/dl (11.8-15.2); Mean Corpuscular HGB Conc 34 % (32-34); Mean Corpuscular Volume 92 fl (84-94); Platelet Count 195 K/mm3 (140-440); Red Blood Count 4.65 M/mm3 (3.65-5.03); Red Cell Distribution Width 14.4 % (13.2-15.2)
[2020-05-26 11:04] LABS: Alanine Aminotransferase 22 units/L (7-56); BUN/Creatinine Ratio 15; Blood Urea Nitrogen 12 mg/dL (9-20); Calcium 9.4 mg/dL (8.4-10.2); Hemolysis Index 11
--- NOTE | 2020-05-26 13:11 | Cat Scan Report ---
CT ABDOMEN AND PELVIS WITH CONTRAST INDICATION / CLINICAL INFORMATION: LLQ abdominal pain, hx of AAA. TECHNIQUE: Axial CT images were obtained through the abdomen and pelvis after 100 mL of IV contrast. All CT scans at this location are performed using CT dose reduction for ALARA by means of automated exposure control. COMPARISON: CTA dated 03/24/2017. FINDINGS: LOWER CHEST: Remote fracture deformity of the left posterior ribs noted. There is similar appearing r ounded atelectasis involving the left lower lobe. Lung bases are otherwise unremarkable. LIVER: Unremarkable GALLBLADDER/BILIARY TREE: Unremarkable PANCREAS: Unremarkable SPLEEN: Unremarkable ADRENALS: Unremarkable KIDNEYS / URETER: Left renal cysts and additional too small to characterize renal hypodensities. Kidn eys enhance symmetrically. No hydronephrosis. URINARY BLADDER: Unremarkable REPRODUCTIVE ORGANS: Prostate is enlarged. STOMACH / SMALL BOWEL: Stomach and small bowel are normal in caliber. No evidence of bowel inflammati on. COLON: Colon is unremarkable. The appendix is normal in caliber. LYMPH NODES: No significant adenopathy. VASCULATURE: Moderate calcified and noncalcified plaque of the abdominal aorta and major branching ve ssels. Infrarenal abdominal aortic aneurysm measures 3.4 cm (series 2 image 111); slightly enlarged f rom prior study. Left iliac stent is patent. The excluded left common iliac artery aneurysm is stable , measuring up to 3.3 cm (series 2 image 143). OTHER: No free air, free fluid, or focal fluid collection is identified. SKELETAL SYSTEM: Multilevel degenerative changes of the thoracolumbar spine. Severe disc and endplate changes redemonstrated at L4-L5. There is no acute process identified. IMPRESSION: 1. No acute process of the abdomen or pelvis. 2. Slight interval enlargement in infrarenal abdominal aortic aneurysm, measuring 3.4 cm. 3. Patent left iliac stent with stable size of excluded left common iliac artery aneurysm. 4. Other stable chronic and incidental findings as above. Signer Name: Jimi Crook MD Signed: 05/26/2020 1:06 PM Workstation Name: [id number]
[2020-05-26 15:26] LABS: Basophils % (Manual) 0 % (0.0-1.8); Total Cells Counted 100
[2020-05-26 15:28] LABS: Burr Cells Rare; Platelet Estimate Consistent w Auto; Spherocytes Few
== END 2020-05-26 13:34 | disposition home or self-care (01) ==
LOC: ED 08:33
DX: R10.32 Left lower quadrant pain (principal); I10 Essential (primary) hypertension; K21.9 Gastro-esophageal reflux disease without esophagitis; F41.9 Anxiety disorder, unspecified; Z98.890 Other specified postprocedural states; Z79.899 Other long term (current) drug therapy
CPT/HCPCS: 36415; 74177; 80053; 81001; 83690; 85007; 85025; 99284; Q9967

== ENCOUNTER 2020-11-08 21:47 | Emergency (ER) | payer OTHER ==
--- NOTE | 2020-11-08 22:31 | Event Note ---
ED Screening Note Date of service: 11/08/20 Time: 22:27 ED Screening Note: 60-year-old -Romanian male with a past medical history of hypertension that is currently on metoprolol 150 mg Norvasc 10 mg Eliquis from having surgery on his left leg last year. As well as a history of PAD. Patient comes in reporting that he feels weak and that his blood sugar is low. Patient states that he was seen today earlier at [facility]. He states he had blood work done and they were not able to give him a definitive diagnosis. Patient states that his blood sugar has been 90 and then drop down to 30. Patient denies any history of diabetes at this time. This initial assessment/diagnostic orders/clinical plan/treatment(s) is/are subject to change based on patients health status, clinical progression and re- assessment by fellow clinical providers in the ED. Further treatment and workup at subsequent clinical providers discretion. Patient/guardian urged not to elope from the ED as their condition may be serious if not clinically assessed and managed. Initial orders include:
[2020-11-08 22:51] LABS: Basophils % (Auto) 0.4 % (0.0-1.8); Eosinophils # (Auto) 0.3 K/mm3 (0.0-0.4); Eosinophils % (Auto) 3.4 % (0.0-4.3); Hematocrit 41.5 % (35.5-45.6); Hemoglobin 14.5 gm/dl (11.8-15.2); Lymphocytes # (Auto) 4.2 K/mm3 (1.2-5.4); Lymphocytes % (Auto) 50.1 % (13.4-35.0); Mean Corpuscular HGB Conc 35 % (32-34); Mean Corpuscular Volume 93 fl (84-94); Monocytes # (Auto) 0.8 K/mm3 (0.0-0.8); Monocytes % (Auto) 10.1 % (0.0-7.3); Platelet Count 187 K/mm3 (140-440); Red Blood Count 4.49 M/mm3 (3.65-5.03); Red Cell Distribution Width 14.6 % (13.2-15.2)
[2020-11-08 23:06] LABS: Alanine Aminotransferase 24 units/L (7-56); Albumin 3.9 g/dL (3.9-5); BUN/Creatinine Ratio 14; Blood Urea Nitrogen 13 mg/dL (9-20); Calcium 9.1 mg/dL (8.4-10.2); Hemolysis Index 12
--- NOTE | 2020-11-09 01:30 | Emergency Department Report ---
HPI - General Chief Complaint: Weakness Time Seen by Provider: 11/09/20 01:08 - HPI HPI: Room 19 The patient is a 60-year-old male present with a chief complaint of weakness. Patient states his symptoms began this morning with shaking chills and feeling diffusely weak and lightheaded for approximately 1 hour. Patient states he went to [facility] for evaluation and had labs performed but was eventually discharged. Patient states he does not recall what his diagnosis was. Patient states he went home and he had a second episode of diffuse weakness that lasted approximately 15 minutes prompting him to come to the emergency department. The patient seems to believe this is attributed to his blood sugar dropping however he states he did check his blood sugar today and the lowest it went was 91. Patient states he has had nasal and chest congestion for approximately 2 weeks. Patient admits to an occasional cough productive of clear sputum. Patient denies history of fever. Patient denies chest pain or shortness of breath during these episodes. Patient denies nausea vomiting or diarrhea. When asked how he is feeling currently the patient states he feels okay at the moment. ED Past Medical Hx - Past Medical History Previous Medical History?: Yes Hx Hypertension: Yes Hx GERD: Yes Hx Psychiatric Treatment: Yes (ANXIETY) Additional medical history: chronic back pain, RBBB, left rib fracture,AAA. PAD - Surgical History Past Surgical History?: Yes Additional Surgical History: hernia repair, Stents in legs - Family History Family history: no significant - Social History Smoking Status: Current Every Day Smoker (2 black and milds daily) Substance Use Type: None (Denies illicit drug use) - Medications Home Medications: Home Medications Medication Instructions Recorded Confirmed Last Taken Type amLODIPine 10 mg PO DAILY #30 tablet 09/24/15 05/11/20 Unknown Rx AtorvaSTATin [Lipitor] 10 mg PO QHS #30 tab 03/24/17 05/11/20 Unknown Rx ALPRAZolam [Xanax TAB] 0.5 mg PO DAILY 05/11/20 05/11/20 Unknown History Apixaban [Eliquis] 5 mg PO DAILY 05/11/20 05/11/20 Unknown History Metoprolol SUCCINATE ER TAB 200 mg PO DAILY 05/11/20 05/11/20 Unknown History cilostazoL [Pletal] 100 mg PO BID 05/11/20 05/11/20 Unknown History traMADoL [Ultram 50 MG tab] 50 mg PO Q6HR PRN #12 tablet 05/26/20 Unknown Rx Azithromycin [Zithromax Z-SHELLIE] 0 mg PO DAILY #6 tab 11/09/20 Unknown Rx guaiFENesin [Guaifenesin] 400 mg PO Q6H #20 tablet 11/09/20 Unknown Rx ED Review of Systems ROS: Stated complaint: DIZZINESS/POSSIBLE LOW BLOOD SUGAR Other details as noted in HPI Constitutional: weakness Eyes: denies: eye pain ENT: congestion Respiratory: cough. denies: shortness of breath Cardiovascular: denies: chest pain Endocrine: no symptoms reported Gastrointestinal: denies: abdominal pain, nausea, vomiting, diarrhea Genitourinary: denies: dysuria Musculoskeletal: denies: arthralgia Neurological: denies: headache Physical Exam - Physical Exam Vital Signs: Vital Signs 11/08/20 11/08/20 21:49 21:53 Temperature 98.7 F Pulse Rate 67 Respiratory 16 18 Rate Blood Pressure 165/84 O2 Sat by Pulse 95 Oximetry Vital Signs 11/08/20 11/08/20 11/09/20 21:49 21:53 02:51 Temperature 98.7 F Pulse Rate 67 Pulse Rate [ 58 L Lying] Respiratory 16 18 Rate Blood Pressure 165/84 Blood Pressure 165/81 [Lying] O2 Sat by Pulse 95 Oximetry Physical Exam: GENERAL: The patient is well-developed well-nourished male lying on stretcher not appearing to be in acute distress. [] HEENT: Normocephalic. Atraumatic. Extraocular motions are intact. Patient has moist mucous membranes. NECK: Supple. No meningitic signs are noted. Trachea midline CHEST/LUNGS: Clear to auscultation. There is no respiratory distress noted. HEART/CARDIOVASCULAR: Regular. There is no tachycardia. There is no gallop rub or murmur. ABDOMEN: Abdomen is soft, nontender. Patient has normal bowel sounds. There is no abdominal distention. SKIN: There is no rash. There is no edema. There is no diaphoresis. NEURO: The patient is awake, alert, and oriented. The patient is cooperative. The patient has no focal neurologic deficits. The patient has normal speech MUSCULOSKELETAL:There is no evidence of acute injury. ED Course Vital Signs 11/08/20 11/08/20 21:49 21:53 Temperature 98.7 F Pulse Rate 67 Respiratory 16 18 Rate Blood Pressure 165/84 O2 Sat by Pulse 95 Oximetry ED Medical Decision Making - Lab Data Result diagrams: 11/08/20 22:33 11/08/20 22:33 Laboratory Tests 11/08/20 11/08/20 11/09/20 22:33 22:33 01:39 WBC 8.3 RBC 4.49 Hgb 14.5 Hct 41.5 MCV 93 MCH 32 MCHC 35 H RDW 14.6 Plt Count 187 Lymph % (Auto) 50.1 H Ransom % (Auto) 10.1 H Eos % (Auto) 3.4 Baso % (Auto) 0.4 Lymph # (Auto) 4.2 Ransom # (Auto) 0.8 Eos # (Auto) 0.3 Baso # (Auto) 0.0 Seg Neutrophils % 36.0 L Seg Neutrophils # 3.0 Sodium 139 Potassium 4.4 Chloride 105.7 Carbon Dioxide 26 Anion Gap 12 BUN 13 Creatinine 0.9 Estimated GFR > 60 BUN/Creatinine Ratio 14 Glucose 109 H Calcium 9.1 Total Bilirubin 0.30 AST 17 ALT 24 Alkaline Phosphatase 89 Total Creatine Kinase Troponin T < 0.010 Total Protein 6.2 L Albumin 3.9 Albumin/Globulin Ratio 1.7 TSH Free T4 Urine Color Urine Turbidity Urine pH Ur Specific Commerce Urine Protein Urine Glucose (UA) Urine Ketones Urine Blood Urine Nitrite Urine Bilirubin Urine Urobilinogen Ur Leukocyte Esterase Urine WBC (Auto) Urine RBC (Auto) Urine Mucus 11/09/20 11/09/20 11/09/20 01:39 01:39 01:42 WBC RBC Hgb Hct MCV MCH MCHC RDW Plt Count Lymph % (Auto) Ransom % (Auto) Eos % (Auto) Baso % (Auto) Lymph # (Auto) Ransom # (Auto) Eos # (Auto) Baso # (Auto) Seg Neutrophils % Seg Neutrophils # Sodium Potassium Chloride Carbon Dioxide Anion Gap BUN Creatinine Estimated GFR BUN/Creatinine Ratio Glucose Calcium Total Bilirubin AST ALT Alkaline Phosphatase Total Creatine Kinase 80 Troponin T Total Protein Albumin Albumin/Globulin Ratio TSH 1.060 Free T4 0.90 Urine Color Straw Urine Turbidity Clear Urine pH 6.0 Ur Specific Commerce 1.012 Urine Protein <15 mg/dl Urine Glucose (UA) Neg Urine Ketones Neg Urine Blood Neg Urine Nitrite Neg Urine Bilirubin Neg Urine Urobilinogen < 2.0 Ur Leukocyte Esterase Neg Urine WBC (Auto) < 1.0 Urine RBC (Auto) 1.0 Urine Mucus Few - EKG Data -: EKG Interpreted by Me EKG shows normal: sinus rhythm Rate: bradycardia (59 bpm) - EKG Data When compared to previous EKG there are: previous EKG unavailable Interpretation: other (Right bundle branch block) - Radiology Data Radiology results: report reviewed (Chest x-ray), image reviewed (Chest x-ray) interpreted by me: Chest x-ray-no focal infiltrates, no pneumothorax. No foreign body seen [address] [id number] XRay Report Signed Patient: VALENTINA MARIO MR#: [id number] : 1960 Acct:[id number] Age/Sex: 60 / M ADM Date: 11/08/20 Loc: ED Attending Dr: Ordering Physician: GIAN DRAKE MD Date of Service: 11/09/20 Procedure(s): XR chest routine 2V Accession Number(s): [id number] cc: GIAN DRAKE MD Fluoro Time In Minutes: CHEST 2 VIEWS INDICATION / CLINICAL INFORMATION: Cough, congestion. COMPARISON: Chest radiograph 05/11/2020 FINDINGS: SUPPORT DEVICES: None. HEART / MEDIASTINUM: No significant abnormality. LUNGS / PLEURA: There is minimal airspace opacity in the left lung base which is not significantly changed from prior examination. No new focal pulmonary consolidation. No pleural effusion. No pneumothorax. ADDITIONAL FINDINGS: No significant additional findings. IMPRESSION: 1. No acute findings and no significant change. Signer Name: Teresa Trujillo MD Signed: 11/09/2020 3:03 AM Workstation Name: [id number] Transcribed By: [facility] Dictated By: Teresa Trujillo MD Electronically Authenticated By: Teresa Trujillo MD Signed Date/Time: 11/09/20302 DD/ 0 TD/TT: Print Cancel - Differential Diagnosis Anxiety, hypothyroidism, rhabdomyolysis, electrolyte imbalance, Critical care attestation.: If time is entered above; I have spent that time in minutes in the direct care of this critically ill patient, excluding procedure time. ED Disposition Clinical Impression: Chest congestion, Chills Disposition: DC-01 TO HOME OR SELFCARE Is pt being admited?: No Does the pt Need Aspirin: No Condition: Stable Additional Instructions: Return to the emergency department should you develop worsening symptoms, inability to tolerate food or liquids, high fever or any other concerns Prescriptions: guaiFENesin [Guaifenesin] 400 mg PO Q6H #20 tablet Azithromycin [Zithromax Z-SHELLIE] 0 mg PO DAILY #6 tab Referrals: PRIMARY CARE, [Primary Care Provider] - 3-5 Days Time of Disposition: 03:16
[2020-11-09 02:06] LABS: Bilirubin,Urine NEG (Negative); Blood,Urine NEG (Negative); Color,Urine Straw (Yellow); Mucus,Urine FEW /HPF; Protein,Urine <15 mg/dL mg/dL (Negative); Urobilinogen,Urine < 2.0 mg/dL (<2.0); WBC,Urine < 1.0 /HPF (0.0-6.0)
[2020-11-09 02:27] LABS: Free T4 (Free Thyroxine) 0.9 ng/dL (0.76-1.46)
[2020-11-09 02:52] VITALS: BP 165/81
--- NOTE | 2020-11-09 03:07 | XRay Report ---
CHEST 2 VIEWS INDICATION / CLINICAL INFORMATION: Cough, congestion. COMPARISON: Chest radiograph 05/11/2020 FINDINGS: SUPPORT DEVICES: None. HEART / MEDIASTINUM: No significant abnormality. LUNGS / PLEURA: There is minimal airspace opacity in the left lung base which is not significantly ch anged from prior examination. No new focal pulmonary consolidation. No pleural effusion. No pneumotho rax. ADDITIONAL FINDINGS: No significant additional findings. IMPRESSION: 1. No acute findings and no significant change. Signer Name: Teresa Trujillo MD Signed: 11/09/2020 3:03 AM Workstation Name: [id number]
--- NOTE | 2020-11-10 12:59 | Electrocardiograph Report ---
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
== END 2020-11-09 03:24 | disposition home or self-care (01) ==
LOC: ED 21:47
DX: R09.89 Other specified symptoms and signs involving the circulatory and respiratory systems (principal); R68.83 Chills (without fever); I10 Essential (primary) hypertension; K21.9 Gastro-esophageal reflux disease without esophagitis; F41.9 Anxiety disorder, unspecified; F17.200 Nicotine dependence, unspecified, uncomplicated; Z98.890 Other specified postprocedural states; Z79.2 Long term (current) use of antibiotics; Z79.899 Other long term (current) drug therapy
CPT/HCPCS: 36415; 71046; 80053; 81001; 82550; 84439; 84443; 84484; 85025; 93005

== ENCOUNTER 2022-01-08 02:08 | Emergency (ER) | payer OTHER ==
[2022-01-08 03:55] LABS: Basophils % (Auto) 0.4 % (0.0-1.8); Eosinophils # (Auto) 0.3 K/mm3 (0.0-0.4); Eosinophils % (Auto) 3.9 % (0.0-4.3); Hemoglobin 15.3 gm/dl (11.8-15.2); Lymphocytes # (Auto) 2.8 K/mm3 (1.2-5.4); Lymphocytes % (Auto) 42.2 % (13.4-35.0); Mean Corpuscular HGB Conc 35 % (32-34); Mean Corpuscular Volume 94 fl (84-94); Monocytes # (Auto) 0.6 K/mm3 (0.0-0.8); Monocytes % (Auto) 9.3 % (0.0-7.3); Platelet Count 170 K/mm3 (140-440); Red Cell Distribution Width 14.4 % (13.2-15.2)
--- NOTE | 2022-01-08 04:26 | XRay Report ---
XR chest 1V ap INDICATION / CLINICAL INFORMATION: Weakness. COMPARISON: 11/09/2020 FINDINGS: SUPPORT DEVICES: None. HEART /PULMONARY VASCULATURE: Cardiac silhouette is accentuated by low lung volumes and AP technique. No significant pulmonary vasculature congestion. LUNGS / PLEURA: Low lung volumes. No focal airspace consolidation. No sizable pleural effusion. No pn eumothorax. ADDITIONAL FINDINGS: No significant additional findings. IMPRESSION: 1. No acute findings. Signer Name: Jimi Crook MD Signed: 01/08/2022 4:21 AM Workstation Name: [id number]
[2022-01-08 04:34] LABS: Alanine Aminotransferase 17 units/L (7-56); Albumin 3.7 g/dL (3.9-5); BUN/Creatinine Ratio 13; Blood Urea Nitrogen 14 mg/dL (9-20); Calcium 9.6 mg/dL (8.4-10.2); Hemolysis Index 2
[2022-01-08] MEDS ORDERED: IBUPROFEN 800 MG TAB PO ONE (05:00)
--- NOTE | 2022-01-08 05:01 | Emergency Department Report ---
ED General Adult HPI - General Chief complaint: Weakness Stated complaint: BODY SHAKING Time Seen by Provider: 01/08/22 03:32 Source: patient Mode of arrival: Ambulatory Limitations: No Limitations - History of Present Illness Initial comments: WEAKNESS, FEELING LIKE HE IS GOING TO PASS OUT SINCE MIDNIGHT, CBG 150 AT TRIAGE, EKG DONE BEDSIDE -: Gradual, hour(s) Radiation: non-radiation Improves with: none Worsens with: none Associated Symptoms: weakness. denies: denies other symptoms, confusion, chest pain, cough, diaphoresis, fever/chills, headaches, loss of appetite, malaise, nausea/vomiting, rash, seizure, shortness of breath Treatments Prior to Arrival: none - Related Data Home Medications Medication Instructions Recorded Confirmed Last Taken ALPRAZolam [Xanax TAB] 0.5 mg PO DAILY 05/11/20 05/11/20 Unknown Apixaban [Eliquis] 5 mg PO DAILY 05/11/20 05/11/20 Unknown Metoprolol SUCCINATE ER TAB 200 mg PO DAILY 05/11/20 05/11/20 Unknown cilostazoL [Pletal] 100 mg PO BID 05/11/20 05/11/20 Unknown Previous Rx's Medication Instructions Recorded Last Taken Type amLODIPine 10 mg PO DAILY #30 tablet 09/24/15 Unknown Rx AtorvaSTATin [Lipitor] 10 mg PO QHS #30 tab 03/24/17 Unknown Rx traMADoL [Ultram 50 MG tab] 50 mg PO Q6HR PRN #12 tablet 05/26/20 Unknown Rx Azithromycin [Zithromax Z-SHELLIE] 0 mg PO DAILY #6 tab 11/09/20 Unknown Rx guaiFENesin [Guaifenesin] 400 mg PO Q6H #20 tablet 11/09/20 Unknown Rx Allergies Allergy/AdvReac Type Severity Reaction Status Date / Time No Known Allergies Allergy Verified 06/30/15 23:10 ED Review of Systems ROS: Stated complaint: BODY SHAKING Other details as noted in HPI Constitutional: denies: chills, fever Eyes: denies: eye pain, eye discharge, vision change ENT: denies: ear pain, throat pain Respiratory: denies: cough, shortness of breath, wheezing Cardiovascular: denies: chest pain, palpitations Endocrine: no symptoms reported Gastrointestinal: denies: abdominal pain, nausea, diarrhea Genitourinary: denies: urgency, dysuria Musculoskeletal: denies: back pain, joint swelling, arthralgia Skin: denies: rash, lesions Neurological: denies: headache, weakness, paresthesias Psychiatric: denies: anxiety, depression Hematological/Lymphatic: denies: easy bleeding, easy bruising ED Past Medical Hx - Past Medical History Hx Hypertension: Yes Hx GERD: Yes Hx Psychiatric Treatment: Yes (ANXIETY) Additional medical history: chronic back pain, RBBB, left rib fracture,AAA. PAD - Surgical History Additional Surgical History: hernia repair, Stents in legs - Social History Smoking Status: Current Every Day Smoker (2 black and milds daily) Substance Use Type: None (Denies illicit drug use) - Medications Home Medications: Home Medications Medication Instructions Recorded Confirmed Last Taken Type amLODIPine 10 mg PO DAILY #30 tablet 09/24/15 05/11/20 Unknown Rx AtorvaSTATin [Lipitor] 10 mg PO QHS #30 tab 03/24/17 05/11/20 Unknown Rx ALPRAZolam [Xanax TAB] 0.5 mg PO DAILY 05/11/20 05/11/20 Unknown History Apixaban [Eliquis] 5 mg PO DAILY 05/11/20 05/11/20 Unknown History Metoprolol SUCCINATE ER TAB 200 mg PO DAILY 05/11/20 05/11/20 Unknown History cilostazoL [Pletal] 100 mg PO BID 05/11/20 05/11/20 Unknown History traMADoL [Ultram 50 MG tab] 50 mg PO Q6HR PRN #12 tablet 05/26/20 Unknown Rx Azithromycin [Zithromax Z-SHELLIE] 0 mg PO DAILY #6 tab 11/09/20 Unknown Rx guaiFENesin [Guaifenesin] 400 mg PO Q6H #20 tablet 11/09/20 Unknown Rx ED Physical Exam - General Limitations: No Limitations General appearance: alert, in no apparent distress - Head Head exam: Present: atraumatic, normocephalic - Eye Eye exam: Present: normal appearance - ENT ENT exam: Present: mucous membranes moist - Neck Neck exam: Present: normal inspection - Respiratory Respiratory exam: Present: normal lung sounds bilaterally. Absent: respiratory distress - Cardiovascular Cardiovascular Exam: Present: regular rate, normal rhythm. Absent: systolic murmur, diastolic murmur, rubs, gallop - GI/Abdominal GI/Abdominal exam: Present: soft, normal bowel sounds - Rectal Rectal exam: Present: deferred - Extremities Exam Extremities exam: Present: normal inspection - Back Exam Back exam: Present: normal inspection - Neurological Exam Neurological exam: Present: alert, oriented X3 - Psychiatric Psychiatric exam: Present: normal affect, normal mood - Skin Skin exam: Present: warm, dry, intact, normal color. Absent: rash ED Course Vital Signs 01/08/22 02:25 Temperature 98.3 F Pulse Rate 75 Respiratory 18 Rate Blood Pressure 147/86 O2 Sat by Pulse 97 Oximetry ED Medical Decision Making - Lab Data Result diagrams: 01/08/22 03:40 01/08/22 03:40 Critical care attestation.: If time is entered above; I have spent that time in minutes in the direct care of this critically ill patient, excluding procedure time. ED Disposition Clinical Impression: Dizziness Disposition: 01 HOME / SELF CARE / HOMELESS Is pt being admited?: No Does the pt Need Aspirin: No Condition: Stable Instructions: Dizziness, [id number]
[2022-01-08 05:59] VITALS: BP 152/81
--- NOTE | 2022-01-08 13:26 | Electrocardiograph Report ---
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
== END 2022-01-08 05:20 | disposition home or self-care (01) ==
LOC: ED 02:08
DX: R42 Dizziness and giddiness (principal); I10 Essential (primary) hypertension; K21.9 Gastro-esophageal reflux disease without esophagitis; F41.9 Anxiety disorder, unspecified; F17.200 Nicotine dependence, unspecified, uncomplicated; Z79.899 Other long term (current) drug therapy
CPT/HCPCS: 36415; 71045; 80053; 82962; 84484; 85025; 93005; 99284